=== PATIENT | male | born 1980 | race Caucasian/White ===

== ENCOUNTER 2017-09-25 16:25 | Emergency (ER) | payer SELFPAY | END 2017-09-25 17:28 | disposition home or self-care (01) | LOC: NAV ERS 16:25 | DX: G56.93 Unspecified mononeuropathy of bilateral upper limbs (principal); K13.70 Unspecified lesions of oral mucosa; F17.210 Nicotine dependence, cigarettes, uncomplicated | CPT/HCPCS: 99283 ==